=== PATIENT | female | born 1965 | race Caucasian/White ===

== ENCOUNTER 2019-03-30 06:50 | Day surgery (SDC) | payer OTHER ==
[2019-03-29 15:36] VITALS: BMI 28.1
[2019-03-30 08:47] VITALS: BP 94/59; TEMP 98.5
--- NOTE | 2019-03-30 09:24 | CT ---
Lumbar myelogram CT lumbar spine with intrathecal contrast HISTORY: Low back pain. Prior surgery. Fluoroscopy time 0.3 minutes. FINDINGS: After explaining the procedure and answering all questions, the lower back was prepped and draped in usual sterile fashion. Sterile technique, buffered local anesthesia, fluoroscopic guidance, and a posterior L2-3 approach were used to carefully advance the tip of a 22-gauge spinal n eedle into the thecal sac. Approximately 10 cc of Isovue-200 M contrast was carefully instilled into the thecal sac under fluoroscopic control. Needle was removed and spot images were obtained. Felicia roman tolerated the procedure well and was eventually transferred from CT to [facility] in good condition for further monitoring. Vertebral body heights are maintained. Disc space narrowing at the T11-12 level of the lower thoracic spine. Posterior pedicle screws and vertical rods at the L4-5 level without perihardware lucency. T12-L1, L1-2, L2-3: Central canal and neural foramina are patent. L3-4: Disc space narrowing. Posterior disc bulge has increased slightly since the 2015 MRI exam. Circ umferential degenerative changes. Mild to moderate stenosis of the central canal. Moderate to severe stenosis of each neural foramen. L4-5: Postoperative changes. Central canal and neural foramina are patent. L5-S1: Mild osteophytosis. Central canal and neural foramina are patent. IMPRESSION: Postoperative changes at L4-5 level without evidence of complication. Degenerative changes most pronounced at the L3-4 level, immediately above the postoperative level, wi th significant central canal and foraminal stenoses.
[2019-03-30] MEDS ORDERED: Iopamidol-M 200 41% 20 ML VIAL ONE (16:39)
== END 2019-03-30 09:30 | disposition home or self-care (01) ==
LOC: RAD 06:50
PROVIDERS: ATTEND Neurological Surgery
PROC: B01B1ZZ Fluoroscopy of Spinal Cord using Low Osmolar Contrast (ICD-10-PCS; principal; 2019-03-30)
DX: M48.061 Spinal stenosis, lumbar region without neurogenic claudication (principal); M48.04 Spinal stenosis, thoracic region; M54.16 Radiculopathy, lumbar region; I10 Essential (primary) hypertension; F32.9 Major depressive disorder, single episode, unspecified; E78.5 Hyperlipidemia, unspecified; F17.200 Nicotine dependence, unspecified, uncomplicated; Z98.1 Arthrodesis status; Z88.8 Allergy status to other drugs, medicaments and biological substances; Z79.82 Long term (current) use of aspirin; Z79.899 Other long term (current) drug therapy
CPT/HCPCS: 62304; 72132; Q9966

== ENCOUNTER 2021-11-20 13:24 | Outpatient (CLI) | payer OTHER ==
[2021-11-20 14:31] LABS: #Basophils 0.1 10x3/uL (0.0-0.2); #Eosinphils 0.3 10x3/uL (0.0-0.5); #Monocytes 0.5 10x3/uL (0.0-1.1); #Neutrophils 5.8 10x3/uL (1.5-8.4); %Basophils 0.7 % (0.0-2.0); %Eosinophils 3.1 % (0.0-6.0); %Lymphocytes 21.7 % (18.0-47.0); %Monocytes 6.3 % (0.0-10.0); %Neutrophils 67.9 % (40.0-75.0); Hemoglobin 12.8 g/dL (12.0-15.5); Mean Corpuscular HGB CONC 32.2 g/dL (32.0-36.0); Mean Corpuscular Hemoglobin 31.3 pg (27.0-33.0); Mean Corpuscular Volume 97.1 fl (81.6-98.3); Mean Platelet Volume 9.1 fl (7.4-10.4); Platelet Count 281 10x3/uL (150-450); RBC Distribution Width 12.8 % (11.5-14.5); Red Blood Cell (RBC) Count 4.09 10x6/uL (3.90-5.03); White Blood Cell (WBC) Count 8.6 10x3/uL (3.5-10.5)
[2021-11-20 15:04] LABS: Anion Gap 14 mmol/L (10-20); BUN (Urea Nitrogen) 14 mg/dL (9.8-20.1); Calc. Creatinine Clearance 0 mL/min (70-130); Calcium 9.4 mg/dL (7.8-10.44); Carbon Dioxide 24 mmol/L (22-29); Chloride 102 mmol/L (98-107); Glucose 79 mg/dL (70-105); Potassium 3.8 mmol/L (3.5-5.1); Sodium 136 mmol/L (136-145)
[2021-11-20 22:16] LABS: SARS-CoV-2 PCR by NAA Not Detected (NotDetected)
== END 2021-11-20 13:25 | disposition home or self-care (01) ==
LOC: LABBT 13:24
PROVIDERS: ATTEND Neurological Surgery
DX: Z01.812 Encounter for preprocedural laboratory examination (principal); M43.16 Spondylolisthesis, lumbar region; M54.16 Radiculopathy, lumbar region; Z20.822 Contact with and (suspected) exposure to COVID-19
CPT/HCPCS: 80048; 85025; U0003; U0005